=== PATIENT | female | born 1995 | race Caucasian/White ===

== ENCOUNTER → 2016-10-17 07:59 | Outpatient (CLI) | payer BC | END | disposition home or self-care (01) | LOC: D.US 07:59 | DX: R10.9 Unspecified abdominal pain (principal) ==

== ENCOUNTER 2018-01-03 12:07 | Emergency (ER) | payer BC ==
[~2018-01-03] VITALS: Ht 167.6 cm; Wt 64.5 kg
[2018-01-03 12:17] VITALS: Ht 167.6 cm; Wt 64.5 kg
[2018-01-03] MEDS ORDERED: TOPROL XL25 MG PO (12:19)
[2018-01-03] MEDS ORDERED: TOPAMAX200 MG PO (12:19)
[2018-01-03] MEDS ORDERED: AMITRIPTYLINE H50 MG PO (12:20)
[2018-01-03 12:55] LABS: BASOPHILS 0.3 % (0-2); EOSINOPHILS 0.4 % (0-7); HEMATOCRIT 40.6 % (36.0-48.0); HEMOGLOBIN 13.7 g/dL (12-16); IMMATURE GRANULOCYTES 0.1 % (0-5); LYMPHOCYTES 39.9 % (15-50); MCH 28.1 pg (26.0-34.0); MCHC 33.7 g/dL (31.0-37.0); MCV 83.2 fL (80.0-100.0); MEAN PLATELET VOLUME 10.1 fL (7.4-10.4); MONOCYTES 4.9 % (2-11); NEUTROPHILS 54.4 % (40-80); PLATELET COUNT 293 10x3/uL (130-400); RBC 4.88 10x6/uL (4.00-5.40); RDW 14.3 % (11.5-14.5); WBC 6.8 10x3/uL (4.8-10.8)
[2018-01-03 12:57] LABS: HCG URINE NEGATIVE (NEGATIVE)
[2018-01-03 13:06] LABS: ALBUMIN 3.8 g/dL (3.4-5.0); ALKALINE PHOSPHATASE 56 U/L (46-116); ALT (SGPT) 18 U/L (10-68); AMYLASE - SERUM 66 U/L (25-115); APPEARANCE HAZY (CLEAR); BILIRUBIN NEGATIVE (NEGATIVE); BILIRUBIN - TOTAL 0.36 mg/dL (0.2-1.3); CALC OSMOLALITY 273 mosm/kg (275-300); CALCIUM 8.9 mg/dL (8.5-10.1); CARBON DIOXIDE 22.2 mmol/L (21.0-32.0); CHLORIDE - SERUM 104 mmol/L (98-107); COLOR YELLOW (YELLOW); CREATININE - SERUM 0.9 mg/dL (0.6-1.3); GLUCOSE 95 mg/dL (74-106); GLUCOSE NEGATIVE (NEGATIVE); KETONE NEGATIVE (NEGATIVE); LIPASE 158 U/L (73-393); NITRITE NEGATIVE (NEGATIVE); POTASSIUM - SERUM 3.6 mmol/L (3.5-5.1); PROTEIN NEGATIVE (NEGATIVE); PROTEIN - SERUM 7.7 g/dL (6.4-8.2); SODIUM 138 mmol/L (136-145); SPECIFIC GRAVITY 1.015 (1.005-1.020); UREA NITROGEN 7 mg/dL (7-18); UROBILINOGEN NORMAL (NORMAL); eGFR NON AFRICAN AMERICAN 82 mL/min (90-120)
[2018-01-03 13:07] LABS: BACTERIA FEW /hpf (NONE SEEN); RED CELLS - URINE 0-5 /hpf (0-5); WHITE CELLS - URINE OCC /hpf (0-5)
[2018-01-03 15:30] VITALS: BP 138/86
== END 2018-01-03 15:31 | disposition home or self-care (01) ==
LOC: D.ER 12:07
PROVIDERS: Emergency Medicine
DX: K59.00 Constipation, unspecified (principal); I88.0 Nonspecific mesenteric lymphadenitis; I10 Essential (primary) hypertension